=== PATIENT | female | born 1935 | race Caucasian/White ===

== ENCOUNTER 2017-08-29 21:09 | Emergency (ER) | payer MEDICARE, OTHER ==
--- OUTSIDE RECORDS SUMMARY | 2017-08-29 21:38 | XMS REPORT ---
:1935 External Reference #:[id number] Author Organization [facility] [employer] Address [address] [address] Phone [phone] Care Team Providers Name Role Phone Julia Grimes MD Primary Care Physician Unavailable Payers Type Date Identification Numbers Payment Provider Subscriber Medicare Primary Policy Number: [id number] Medicare Tosha Harvey PayID: [id number] [address] [place] [address] [facility] Part B Policy Number: [id number] [employer] Tosha Harvey PayID: [id number] [address] [place] [address] Problems Description No Information Family History Date Family Member(s) Problem(s) Comments General Heart Disease General Cancer Social History Type Date Description Comments Lives With Family Occupation Retired ETOH Use Denies alcohol use Smoking Patient has never smoked Exercise Type/Frequency Exercises regularly Allergies, Adverse Reactions, Alerts Date Description Reaction Status Severity Comments 03/30/2013 NKDA active Medications Medication Date Status Form Strength Qnty SIG Indications Ordering Provider Levothyroxine Active Tablets 75mcg 90tabs 1 po Unknown Sodium 000 qd Aspirin 0 Active Tablets 81mg 1 po Unknown 000 qd Vitamin B-12 CR Active Tablets ER 1000mcg 1 po Unknown 000 qd Vital Signs Date Vital Result Comment 08/07/2017 Height 65 inches 5'5" Weight 116.00 lb Heart Rate 78 /min BP Systolic 108 mmHg BP Diastolic 66 mmHg Respiratory Rate 12 /min Body Temperature 98.8 F Pain Level 4 BMI (Body Mass Index) 19.3 kg/m2 03/30/2013 Height 65 inches 5'5" Weight 116.00 lb Heart Rate 70 /min BP Systolic Sitting 114 mmHg BP Diastolic Sitting 70 mmHg BMI (Body Mass Index) 19.3 kg/m2 Results Test Date Test Result H/L Range Note CBC Auto Diff 03/31/2013 White Blood Count 16.0 10^3/uL High 4.8-10.8 Red Blood Count 4.17 10^6/uL 4.0-5.4 Hemoglobin 13.0 g/dL 12.0-16.0 Hematocrit 40 % 35-47 Mean Corpuscular Volume 95 fL 80-97 Mean Corpuscular Hemoglobin 31 pg 27-31 Mean Corpuscular HGB Conc 33 g/dL 31-36 Red Cell Distribution Width 13 % 10.5-15 Platelet Count 222 10^3/uL 150-450 Mean Platelet Volume 10 um3 7.4-10.4 Abs Neutrophils 14.2 10^3/uL High 1.5-7.7 Abs Lymphocytes 0.9 10^3/uL Low 1.0-4.8 Abs Monocytes 0.9 10^3/uL High 0-0.8 Abs Eosinophils 0 10^3/uL 0-0.6 Abs Basophils 0 10^3/uL 0-0.2 Abs Nucleated RBC 0 10^3/uL Granulocyte % 88.6 % High 38-83 Lymphocyte % 5.6 % Low 25-47 Monocyte % 5.8 % 1-9 Eosinophil % 0 % 0-6 Basophil % 0 % 0-2 Nucleated Red Blood Cells % 0 Arthritis Panel 03/31/2013 Erythrocyte Sed Rate 28 mm/Hr 0-40 Uric Acid 3.3 mg/dL 2.6-7.2 Mara (Anti-Nuclear AB) Screen Negative Negative Rheumatoid Factor <15 IU/mL <15 1 1 Test Performed by: [facility] - [address] [address] [employer] Sales Representative: Tez Craft III, M.D. Procedures Date CPT Code Description Status 03/30/2013 87550 Rad Exam; Hand Comp Completed 10/18/2011 17038 Color Flow Doppler/Interp & Reprt Completed 10/18/2011 16171 Pulse Wave/Continuous-Interp.RPT Completed 10/18/2011 67526 ECHO Transthorasic Realtime 2D W Doppler & Color Completed Flow Hosp Encounters Type Date Location Provider CPT E/M Dx Office Visit 08/07/2017 [facility] Katia Blair, [address] M65.842 10:30a [facility] M19.032 Office Visit 03/30/2013 10:30a [facility] Katia Blair, [address] 719.44 Of [facility] AT [place] [phone] Plan of Care Future Appointment(s):09/04/2017 9:00 am - Katia Blair M.D. at [facility]/07/2017 - Katia Blair M.D.M65.842 Other synovitis and tenosynovitis, left handFollow up:Follow up: 4 [id number] Primary osteoarthritis, left wrist
[2017-08-29] MEDS ORDERED: Meclizine TAB* 12.5 MG PO ONE ×2 (22:32→23:58)
[2017-08-29] MEDS ORDERED: Metoclopramide IV* 5 MG/ML 2 ML VIAL IV ONE (22:32)
[2017-08-29] MEDS ORDERED: NS 0.9% 1000 ML* 1,000 ML IV ONE (22:32)
[2017-08-29 22:58] LABS: ABS Basophils 0 10^3/ul (0-0.2); ABS Eosinophils 0 10^3/ul (0-0.6); ABS Lymphocytes 1.3 10^3/ul (1.0-4.8); ABS Monocytes 0.4 10^3/ul (0-0.8); ABS Neutrophils 7.7 10^3/ul (1.5-7.7); ABS Nucleated RBC 0 10^3/ul; Eosinophil % 0.2 % (0-6); Hematocrit 39 % (35-47); Lymphocyte % 13.6 % (25-47); Mean Corpuscular HGB Conc 34 g/dl (31-36); Mean Corpuscular Hemoglobin 32 pg (27-31); Mean Corpuscular Volume 95 fL (80-97); Mean Platelet Volume 9.1 um3 (7.4-10.4); Nucleated Red Blood Cells % 0; Platelet Count 194 10^3/ul (150-450); Red Blood Count 4.06 10^6/ul (4.00-5.40); Red Cell Distribution Width 14 % (10.5-15); White Blood Count 9.5 10^3/ul (3.5-10.8)
[2017-08-29 23:15] LABS: EGFR Non-African American 84.1 (>60)
[2017-08-29 23:53] LABS: Urine Appearance Cloudy; Urine Blood Negative (Negative); Urine Color Yellow; Urine Ketones Negative (Negative); Urine Protein Negative (Negative); Urine Specific Gravity 1.013 (1.010-1.030); Urine Urobilinogen Negative (Negative)
[2017-08-29] MEDS ORDERED: diPHENhydraMINE IV* 50 MG/ML 1 ml VIAL (BENADRYL) IV ONE (23:59)
[2017-08-30 01:43] VITALS: BP 124/75
--- NOTE | 2017-08-30 05:30 | ED ---
Doug Snow Elizabeth, scribed for Harley Abebe MD on 08/29/17 at 2235 . Dizziness - HPI Summary HPI Summary: This patient is an 82 year old F presenting to [facility] upon referral from Dr. Grimes with a chief complaint of sudden onset dizziness since 14:30 today. The patient reports that it felt like her head was spinning. The patient reports that her symptoms have alleviated since she arrived at [facility]. The patient reports that her symptoms began after she spent all afternoon cleaning the basement. Pt denies any pain. Symptoms aggravated by head movement or change in position. Symptoms alleviated by rest. Patient reports vomiting x2, lightheadedness, unsteady gait and nausea. Patient denies chest pain or shortness of breath. Pt denies any URI symptoms. - History Of Current Complaint Chief Complaint: EDDizziness Stated Complaint: DIZZINESS/NAUSEA Time Seen by Provider: 08/29/17 22:05 Hx Obtained From: Patient Onset/Duration: Resolved, Suddenly Timing: Hours Severity Initially: Moderate Severity Currently: None Character: Head Spinning Aggravating Factor(s): Nothing Alleviating Factor(s): Nothing Associated Signs And Symptoms: Positive: Nausea, Vomiting, Unsteady Gait. Negative: Chest Pain, SOB - Allergies/Home Medications Allergies/Adverse Reactions: Allergies Allergy/AdvReac Type Severity Reaction Status Date / Time No Known Allergies Allergy Verified 04/20/16 11:58 Home Medications: Home Medications Acetaminophen [Tylenol Extra Strength] 500 mg PO Q12H PRN 08/29/17 [History Confirmed 08/29/17] Alpha Lipoic Acid [Alpha Lipoic Acid] 50 mg PO BID 08/29/17 [History Confirmed 08/29/17] Aspirin EC TAB* [Ecotrin EC Low Dose 81 MG*] 81 mg PO DAILY 08/29/17 [History Confirmed 08/29/17] Cholecalciferol TAB* [Vitamin D TAB*] 2,000 units PO DAILY 08/29/17 [History Confirmed 08/29/17] Levothyroxine TAB* [Synthroid TAB*] 62.5 mcg PO SUMOTUWETHFR 08/29/17 [History Confirmed 08/29/17] Levothyroxine TAB* [Synthroid TAB*] 125 mcg PO SA 08/29/17 [History Confirmed ] PMH/Surg Hx/FS Hx/Imm Hx Endocrine/Hematology History: Reports: Hx Thyroid Disease, Other Endocrine/ Hematological Disorders - factor V leiden Denies: Hx Diabetes Cardiovascular History: Reports: Hx Hypercholesterolemia Denies: Hx Angina, Hx Congestive Heart Failure, Hx Coronary Artery Disease, Hx Hypertension, Hx Myocardial Infarction, Hx Pacemaker/ICD, Hx Valvular Heart Disease Respiratory History: Denies: Hx Asthma, Hx Chronic Obstructive Pulmonary Disease (COPD) History: Denies: Hx Renal Disease Sensory History: Reports: Hx Hearing Aid Neurological History: Reports: Other Neuro Impairments/Disorders - PAIN CLINIC PT Psychiatric History: Denies: Hx Panic Disorder - Surgical History Surgery Procedure, Year, and Place: t&a,hysterectomy 1984. BILATERAL CATARACTS 2008 - Immunization History Date of Tetanus Vaccine: unk Date of Influenza Vaccine: pt states last year Infectious Disease History: No Infectious Disease History: Denies: History Other Infectious Disease, Traveled Outside the [place] in Last 30 Days - Family History Known Family History: Positive: Other - HCL Negative: Seizure Disorder - Social History Alcohol Use: None Substance Use Type: Reports: None Smoking Status (MU): Never Smoked Tobacco Review of Systems Negative: Fever Eyes: Negative Negative: Chest Pain Negative: Shortness Of Breath Positive: Vomiting, Nausea Neurological: Other - positive dizziness, positive unsteady gait, positive lightheadedness All Other Systems Reviewed And Are Negative: Yes Physical Exam - Summary Physical Exam Summary: Appearance: Well-appearing, no distress, Well-nourished Skin: Warm, color reflects adequate perfusion Head: Normal Head/Face inspection Eyes: Conjunctiva clear; no nystagmus ENT: Normal inspection Neck: Supple, no nodes, no JVD. Respiratory: Lungs clear, Normal breath sounds, no respiratory distress Cardio: RRR, No murmur, pulses normal, brisk capillary refill Abdomen: soft, nontender, no guarding, no rebound Bowel sounds: present Musculoskeletal: Strength Intact/ ROM intact. No calf tenderness. No edema. Neuro: Alert, muscle tone normal, facial symmetry, speech normal, sensory/motor intact, GCS 15; CN intact II-XII Psychological: Normal Triage Information Reviewed: Yes Vital Signs On Initial Exam: Initial Vitals Temp Pulse Resp BP Pulse Ox 97.1 F 88 18 123/61 95 08/29/17 21:21 08/29/17 21:21 08/29/17 21:21 08/29/17 21:21 08/29/17 21:21 Vital Signs Reviewed: Yes Diagnostics - Vital Signs Vital Signs Temp Pulse Resp BP Pulse Ox 08/29/17 21:21 97.1 F 88 18 123/61 95 - Laboratory Lab Results: Lab Results 08/29/17 08/29/17 08/29/17 Range/Units 22:52 22:52 23:43 WBC 9.5 (3.5-10.8) 10^3/ul RBC 4.06 (4.00-5.40) 10^6/ul Hgb 13.0 (12.0-16.0) g/dl Hct 39 (35-47) % MCV 95 (80-97) fL MCH 32 H (27-31) pg MCHC 34 (31-36) g/dl RDW 14 (10.5-15) % Plt Count 194 (150-450) 10^3/ul MPV 9.1 (7.4-10.4) um3 Neut % (Auto) 81.2 (38-83) % Lymph % (Auto) 13.6 L (25-47) % Garvin % (Auto) 4.6 (0-7) % Eos % (Auto) 0.2 (0-6) % Baso % (Auto) 0.4 (0-2) % Absolute Neuts (auto) 7.7 (1.5-7.7) 10^3/ul Absolute Lymphs (auto) 1.3 (1.0-4.8) 10^3/ul Absolute Monos (auto) 0.4 (0-0.8) 10^3/ul Absolute Eos (auto) 0 (0-0.6) 10^3/ul Absolute Basos (auto) 0 (0-0.2) 10^3/ul Absolute Nucleated RBC 0 10^3/ul Nucleated RBC % 0 Sodium 135 (135-145) mmol/L Potassium 3.9 (3.5-5.0) mmol/L Chloride 98 L (101-111) mmol/L Carbon Dioxide 29 (22-32) mmol/L Anion Gap 8 (2-11) mmol/L BUN 12 (6-24) mg/dL Creatinine 0.67 (0.51-0.95) mg/dL Est GFR ( Amer) 108.1 (>60) Est GFR (Non-Af Amer) 84.1 (>60) BUN/Creatinine Ratio 17.9 (8-20) Glucose 149 H (70-100) mg/dL Calcium 9.3 (8.6-10.3) mg/dL Magnesium 2.1 (1.9-2.7) mg/dL Total Bilirubin 0.60 (0.2-1.0) mg/dL AST 21 (13-39) U/L ALT 18 (7-52) U/L Alkaline Phosphatase 80 (34-104) U/L Troponin I 0.00 (<0.04) ng/mL Total Protein 6.4 (6.4-8.9) g/dL Albumin 3.9 (3.2-5.2) g/dL Globulin 2.5 (2-4) g/dL Albumin/Globulin Ratio 1.6 (1-3) TSH 3.13 (0.34-5.60) mcIU/mL Urine Color Yellow Urine Appearance Cloudy Urine pH 7.0 (5-9) Ur Specific Hamer 1.013 (1.010-1.030) Urine Protein Negative (Negative) Urine Ketones Negative (Negative) Urine Blood Negative (Negative) Urine Nitrate Negative (Negative) Urine Bilirubin Negative (Negative) Urine Urobilinogen Negative (Negative) Ur Leukocyte Esterase Negative (Negative) Urine Glucose Negative (Negative) Result Diagrams: 08/29/17 22:52 08/29/17 22:52 Lab Statement: Any lab studies that have been ordered have been reviewed, and results considered in the medical decision making process. - CT CT Brain CT Interpretation: No Acute Changes - Impression: no acute intracranial findings. Dr. Abebe has reviewed this report. CT Interpretation Completed By: Radiologist - EKG 22:33 Cardiac Rate: NL - at 75 BPM EKG Rhythm: Sinus Rhythm Ectopy: PVCs EKG Interpretation: NSR, nml axis, nml interval, PVC Re-Evaluation - Re-Evaluation First Eval Re-Evaluation Time: 00:00 Change: Improved - pt symptomatically improved, however pt needing assistance with transfer to bathroom. Plan for second dose po meclizine to assess for improvement in symptoms. Second Eval Re-Evaluation Time: 01:19 Change: Improved - Pt able to to ambulate in the ED with assisstance and no ataxia. pt uses walker and cane with at home. pt significantly improved after meds. Pt with family at home to offer assistanceas needed. Dizzy Course/Dx - Diagnoses Differential Diagnosis/HQI/PQRI: Anxiety, Benign Paroxysmal Positional Vertigo, Coronary Artery Disease, CVA, Meniere's Disease, Medication Reaction, Transient Ischemic Attack, Vasovagal Reaction Provider Diagnoses: Vertigo Discharge - Sign-Out/Discharge Documenting (check all that apply): Discharge/Admit/Transfer - Discharge Plan Condition: Improved Disposition: HOME Prescriptions: Meclizine TAB* [Antivert 12.5 TAB*] 25 mg PO TID 7 Days #12 tab Patient Education Materials: Vertigo (ED) Referrals: Julia Grimes MD [Primary Care Provider] - 2 Days - Billing Disposition and Condition Condition: IMPROVED Disposition: Home The documentation as recorded by the Doug staples Elizabeth accurately reflects the service I personally performed and the decisions made by , Harley Abebe MD.
--- NOTE | 2017-08-30 07:49 | RAD ---
HISTORY: vertigo COMPARISONS: None TECHNIQUE: Multiple contiguous axial CT scans were obtained of the head without intravenous contrast. FINDINGS: HEMORRHAGE/INFARCT: There is no hemorrhage or acute infarct. MASSES/SHIFT: There is no mass or shift. EXTRA-AXIAL SPACES: There are no extra-axial fluid collections. SULCI AND VENTRICLES: The sulci and ventricles are normal in size and position for the patient's stated age. CEREBRUM: There is hypoattenuation of the periventricular and subcortical white matter. BRAINSTEM: There are no focal parenchymal abnormalities. CEREBELLUM: There are no focal parenchymal abnormalities. VESSELS: The vessels are grossly normal. PARANASAL SINUSES: The paranasal sinuses are clear. ORBITS: The orbits are unremarkable. BONES AND SOFT TISSUE: No bone or soft tissue abnormalities are noted. OTHER: None IMPRESSION: NO ACUTE INTRACRANIAL PATHOLOGY. CHRONIC SMALL VESSEL ISCHEMIC CHANGES.
== END 2017-08-30 01:37 | disposition home or self-care (01) ==
LOC: ED 21:09
DX: R42 Dizziness and giddiness (principal); E07.9 Disorder of thyroid, unspecified; E78.00 Pure hypercholesterolemia, unspecified; D68.51 Activated protein C resistance; Z79.82 Long term (current) use of aspirin
CPT/HCPCS: 36415; 70450; 80053; 81003; 83735; 84443; 84484; 85025; 93005; 96360; 96374; 96375; 99283; A9270-GY; J1200; J2765

== ENCOUNTER 2024-01-14 18:03 | Inpatient (IN) ==
[2024-01-14 19:18] LABS: INR 1.13 (0.85-1.14)
[2024-01-14 19:22] LABS: ABS Eosinophils 0.1 10^3/uL (0.0-0.5); ABS Lymphocytes 1.4 10^3/uL (1.0-4.8); ABS Neutrophils 11.5 10^3/uL (1.5-7.6); Eosinophil % 0.6 %; Hemoglobin 13.2 g/dL (11.5-14.3); Lymphocyte % 9.9 %; Mean Corpuscular Hgb Conc 33.8 g/dL (31-36); Mean Corpuscular Volume 94.7 fL (80-97); Mean Platelet Volume 9.3 fL (7.5-11.2); Platelet Count 223 10^3/uL (150-450); Red Blood Count 4.12 10^6/uL (3.63-4.92); Red Cell Distribution Width 13.6 % (12-17)
[2024-01-14 19:34] LABS: Albumin 3.9 g/dL (3.2-5.2); Albumin/Globulin Ratio 1.6 (1-3); Calcium 9.3 mg/dL (8.6-10.3); Creatinine, Serum 0.72 mg/dL (0.51-0.95); Globulin 2.5 g/dL (2-4); Potassium 3.7 mmol/L (3.5-5.0); Total Bilirubin 0.8 mg/dL (0.2-1.0); Total Protein 6.4 g/dL (6.4-8.9); eGFR CKD-EPI 79.9 (>60)
[2024-01-14 21:21] LABS: High Sensitivity Troponin 1 Hr 21 pg/mL (<15)
[2024-01-14] MEDS: Iohexol 300 (CONTRAST) 10 ML SDV IV ONE (22:01)
[2024-01-14] MEDS: Acetaminophen IV 1 GM/100ML 1,000 MG/100 ML BAG IV ONE (22:23)
[2024-01-14] MEDS: Morphine 2 MG/ML SYRINGE IV ONE (22:23)
[2024-01-14] MEDS: NS 0.9% 250 ml 250 ML IV ONE (22:23)
[2024-01-15] MEDS: NS 0.9% 250 ml 250 ML IV ONE (01:09)
[2024-01-15] MEDS: Haloperidol 5 mg/ml SDV IV/IM 5 MG/ML AMP IV SLOW PU ONE (03:11)
[2024-01-15] MEDS ORDERED: Sulfur Hexaflouride MICROSPHR 25 MG VIAL IV PRN (04:25)
[2024-01-15 06:57] LABS: ABS Basophils 0.1 10^3/uL (0.0-0.1); ABS Eosinophils 0.2 10^3/uL (0.0-0.5); ABS Lymphocytes 1.6 10^3/uL (1.0-4.8); ABS Neutrophils 9.2 10^3/uL (1.5-7.6); Eosinophil % 1.6 %; Hematocrit 35.8 % (35-45); Hemoglobin 12.1 g/dL (11.5-14.3); Lymphocyte % 13.3 %; Mean Corpuscular Hemoglobin 31.8 pg (27-33); Mean Corpuscular Hgb Conc 33.8 g/dL (31-36); Mean Corpuscular Volume 94.1 fL (80-97); Platelet Count 213 10^3/uL (150-450); White Blood Count 12.1 10^3/uL (3.8-11.8)
[2024-01-15 07:21] LABS: Calcium 8.6 mg/dL (8.6-10.3); Creatinine, Serum 0.55 mg/dL (0.51-0.95); Potassium 3.5 mmol/L (3.5-5.0); eGFR CKD-EPI 87.6 (>60)
[2024-01-15] MEDS: Heparin 5000 UNITS/ML 1 mL VIAL SUBCUT ONE (07:25)
[2024-01-15] MEDS: Calcium Carb (TUMS) 500 mg CHEW TAB PO SCH (08:37)
[2024-01-15] MEDS: Cholecalciferol (VIT D3) 400 units TAB PO SCH (08:37)
[2024-01-15 08:41] LABS: TSH Ultra Thyroid Stim Horm 8.84 mcIU/mL (0.34-5.60)
[2024-01-15] MEDS: Morphine 2 MG/ML SYRINGE IV PRN (10:48)
[2024-01-15] MEDS ORDERED: Propofol 10 MG/ML 20 ML BTL ONE (13:00)
[2024-01-15] MEDS ORDERED: Lidocaine 2% PF 5 ML VIAL ONE (13:01)
[2024-01-15] MEDS ORDERED: fentaNYL 250 mcg/5 ml 50 MCG/ML 5 ml VIAL (250 MCG) ONE (13:01)
[2024-01-15] MEDS ORDERED: Rocuronium 50 mg VIAL 10 mg/ml 5 ml VIAL (50 mg) ONE (13:04)
[2024-01-15] MEDS ORDERED: Bupivacaine 0.5% SDV PF 30ML VIAL ONE (13:36)
[2024-01-15] MEDS ORDERED: ceFAZolin 2 GM PREMIX 2 GM/50 ML BAG ONE (13:50)
[2024-01-15] MEDS ORDERED: KETAMINE HCL 10 MG/ML 20 ml VIAL (200 MG) ONE (14:10)
[2024-01-15] MEDS ORDERED: Dexamethasone IV 4 MG/ML VIAL 1 ml VIAL ONE (14:57)
[2024-01-15] MEDS ORDERED: Ondansetron 4 mg VIAL 2 MG/ML 2 ml VIAL ONE (14:57)
[2024-01-15] MEDS ORDERED: Acetaminophen IV 1 GM/100ML 1,000 MG/100 ML BAG IV ONE (14:59)
[2024-01-15] MEDS ORDERED: Naloxone 0.4 mg VIAL 0.4 mg/ml 1 ml VIAL IV PRN (16:05)
[2024-01-15] MEDS ORDERED: HYDROmorphone 1 MG/1 ML SYRINGE IV PRN (16:05)
[2024-01-15] MEDS ORDERED: fentaNYL 100 mcg/2 ml 50 MCG/ML VIAL IV PRN (16:05)
[2024-01-15] MEDS ORDERED: Ondansetron 4 mg VIAL 2 MG/ML 2 ml VIAL IV PRN (16:05)
[2024-01-15 17:07] LABS: Hematocrit 33.9 % (35-45); Hemoglobin 11.4 g/dL (11.5-14.3)
[2024-01-15] MEDS ORDERED: Polyethylene Glycol 3350 17 GM PACKET PO PRN (17:38)
[2024-01-15] MEDS ORDERED: Magnesium Hydroxide LIQ 30 ML UDC PO PRN (17:38)
[2024-01-15] MEDS ORDERED: Senna TAB 8.6 mg TAB PO PRN (17:38)
[2024-01-15] MEDS: Lactated Ringers 1000 ml BAG 1,000 ML IV SCH (18:12)
[2024-01-15] MEDS: Magnesium Hydroxide LIQ 30 ML UDC PO SCH (21:51)
[2024-01-15] MEDS: ceFAZolin 2 GM PREMIX 2 GM/50 ML BAG IV SCH (23:10)
[2024-01-16 06:34] LABS: Hematocrit 31.4 % (35-45); Hemoglobin 10.6 g/dL (11.5-14.3); Mean Corpuscular Hemoglobin 31.7 pg (27-33); Mean Corpuscular Hgb Conc 33.7 g/dL (31-36); Mean Corpuscular Volume 94.3 fL (80-97); Mean Platelet Volume 9.2 fL (7.5-11.2); Platelet Count 211 10^3/uL (150-450); Red Blood Count 3.33 10^6/uL (3.63-4.92); Red Cell Distribution Width 13.9 % (12-17); White Blood Count 12.8 10^3/uL (3.8-11.8)
[2024-01-16 07:00] LABS: Calcium 8.5 mg/dL (8.6-10.3); Creatinine, Serum 0.54 mg/dL (0.51-0.95); Magnesium 1.9 mg/dL (1.9-2.7); Potassium 4.6 mmol/L (3.5-5.0)
[2024-01-16] MEDS: Enoxaparin 30 MG/0.3 ML SYR SUBCUT SCH (10:21)
[2024-01-17 06:31] LABS: ABS Eosinophils 0.3 10^3/uL (0.0-0.5); ABS Lymphocytes 1.5 10^3/uL (1.0-4.8); ABS Neutrophils 7.6 10^3/uL (1.5-7.6); ABS Nucleated RBC 0.01 10^3/ul; Hematocrit 26.4 % (35-45); Lymphocyte % 14.2 %; Mean Corpuscular Hemoglobin 31.7 pg (27-33); Mean Corpuscular Hgb Conc 33.9 g/dL (31-36); Mean Corpuscular Volume 93.6 fL (80-97); Mean Platelet Volume 9.4 fL (7.5-11.2); Platelet Count 183 10^3/uL (150-450); Red Blood Count 2.82 10^6/uL (3.63-4.92); Red Cell Distribution Width 14.2 % (12-17); White Blood Count 10.5 10^3/uL (3.8-11.8)
[2024-01-17 06:49] LABS: Calcium 7.6 mg/dL (8.6-10.3); Creatinine, Serum 0.5 mg/dL (0.51-0.95); Magnesium 1.7 mg/dL (1.9-2.7); eGFR CKD-EPI 89.6 (>60)
[2024-01-18 06:39] LABS: ABS Eosinophils 0.2 10^3/uL (0.0-0.5); ABS Lymphocytes 1.8 10^3/uL (1.0-4.8); ABS Monocytes 1.2 10^3/uL (0.0-0.9); ABS Neutrophils 7.3 10^3/uL (1.5-7.6); Eosinophil % 2.1 %; Hematocrit 29.1 % (35-45); Hemoglobin 9.7 g/dL (11.5-14.3); Mean Corpuscular Hemoglobin 31.6 pg (27-33); Mean Corpuscular Hgb Conc 33.4 g/dL (31-36); Mean Corpuscular Volume 94.7 fL (80-97); Mean Platelet Volume 9.5 fL (7.5-11.2); Platelet Count 225 10^3/uL (150-450); Red Blood Count 3.07 10^6/uL (3.63-4.92); Red Cell Distribution Width 13.7 % (12-17); White Blood Count 10.5 10^3/uL (3.8-11.8)
[2024-01-18 06:56] LABS: Calcium 7.9 mg/dL (8.6-10.3); Creatinine, Serum 0.4 mg/dL (0.51-0.95); Magnesium 1.8 mg/dL (1.9-2.7); Potassium 4.1 mmol/L (3.5-5.0); eGFR CKD-EPI 94.5 (>60)
[2024-01-18] MEDS: Magnesium Sulfate 2 gm BAG 2 GM/50 ML BAG IVPB ONE (08:46)
[2024-01-19 06:27] LABS: Hematocrit 27.3 % (35-45); Hemoglobin 9.4 g/dL (11.5-14.3); Mean Corpuscular Hemoglobin 32.2 pg (27-33); Mean Corpuscular Hgb Conc 34.3 g/dL (31-36); Mean Corpuscular Volume 93.9 fL (80-97); Mean Platelet Volume 9.2 fL (7.5-11.2); Platelet Count 245 10^3/uL (150-450); Red Blood Count 2.91 10^6/uL (3.63-4.92); Red Cell Distribution Width 14.1 % (12-17); White Blood Count 11.2 10^3/uL (3.8-11.8)
[2024-01-19 06:45] LABS: Calcium 7.5 mg/dL (8.6-10.3); Creatinine, Serum 0.41 mg/dL (0.51-0.95); Magnesium 2.1 mg/dL (1.9-2.7); Potassium 4.2 mmol/L (3.5-5.0)
[2024-01-19 08:16] LABS: TSH Ultra Thyroid Stim Horm 2.95 mcIU/mL (0.34-5.60)
[2024-01-19 08:18] LABS: Free T4 1.19 ng/dL (0.61-1.12)
[2024-01-19 08:29] LABS: Ferritin 123.9 ng/mL (11-307)
[2024-01-19] MEDS: Polyethylene Glycol 3350 17 GM PACKET PO SCH (11:47)
[2024-01-19] MEDS: Senna TAB 8.6 mg TAB PO SCH (23:23)
[2024-01-20 10:01] VITALS: BP 118/68
[2024-01-20 11:22] LABS: Rapid COVID-19 Molecular Undetected (Undetected)
== END 2024-01-20 14:15 | DRG 522 ==
LOC: EDHOLD 18:03 → ED 18:03 → OBSVTOIN 01-15 01:41 → SUATTDRO 01-15 01:41 → SSU 01-15 04:42
PROVIDERS: ADMIT Internal Medicine; ATTEND Internal Medicine